=== PATIENT | female | born 1985 | race Caucasian/White ===

== ENCOUNTER 2016-04-04 09:11 | Emergency (ER) | payer MEDICAID ==
[~2016-04-04 09:11] MED LIST: PREN1CAP17; ZANT150T2 PO
[2016-04-04 10:13] VITALS: RESP 20; TEMP 98.7
--- NOTE | 2016-04-04 10:22 | PD ---
HPI Chief Complaint "I saw blood from my vagina when I wiped this morning" Date Seen: Apr 04, 2016 Time Seen: 10:10 Travel History International Travel<30 Days: No Contact w/Intl Traveler<30Days: No Known Affected Area: No History of Present Illness HPI 30-year-old 010 at 34 weeks of gestation, EDC 05/16/16, patient presents to labor and delivery complaining of vaginal spotting. Patient stated that she saw blood when she wiped this morning. She denies cramping, contractions, vaginal bleeding, leakage of fluid. She reports presence of movement. Patient stated that she just wanted to be checked out and so she came to labor and delivery. care is with the office of [facility]. course is unremarkable. Para: 0 : 2 Miscarriage: 1 : 0 History Past Medical History Narrative Medical Denies Medical History: Denies Significant Hx Obstetric History Obstetric History Spontaneous 1 Past Surgical History Narrative Surgical Status post oral surgery and wisdom tooth extraction Family History Narrative Family History Father with hypertension Social History Alcohol Use: No Tobacco Use: No Substance Abuse: No Allergies-Medications (Allergen,Severity, Reaction): Coded Allergies: No Known Allergies (Unverified , 03/26/16) Home Meds Active Scripts Ranitidine (Zantac)150 Mg [id number] Mg PO BID #60 TAB Ref 6 Prov:Blanquita Morales 01/30/16 Reported Medications W/O A W/ Fe Asparto G (Prenate Pixie 10-0.6-0.4-200 mg)1 Cap Cap 01/30/16 Review of Systems Except as stated in HPI: all other systems reviewed are Neg Genitourinary: Other (vaginal spotting) Physical Exam Narrative GENERAL: Well-nourished, well-developed patient. SKIN: Warm and dry. HEAD: Normocephalic and atraumatic. EYES: No scleral icterus. No injection or drainage. ENT: No nasal drainage noted. Mucous membranes pink. Airway patent. NECK: Supple, trachea midline. No JVD. CARDIOVASCULAR: Regular rate and rhythm without murmurs, gallops, or rubs. RESPIRATORY: Breath sounds equal bilaterally. No accessory muscle use. BREASTS: Bilateral exam showed no masses , no retractions, no nipple discharge. ABDOMEN/GI: Abdomen soft, gravid, non-tender, bowel sounds present, no rebound, no guarding Gravid to 34 weeks size Fundal Height: 34 cm GENITOURINARY: External Genitalia: intact and normal in appearance BUS glands: Normal Cervix: Closed, long, posterior, there is some dark blood noted on the glove however there is no active bleeding Dilatation: Close Effacement: 30% Station: -3 Presentation: Cephalic Membranes: Intact Uterine Contractions: None FHT's: Category: one Baseline: 130s Reactive: Yes Variability: Moderate Decels: None EXTREMITIES: No cyanosis or edema. BACK: Nontender without obvious deformity. No CVA tenderness. NEUROLOGICAL: Awake and alert. Motor and sensory grossly within normal limits. Five out of 5 muscle strength in all muscle groups. Normal speech. Data Data Vital Signs Reviewed: Yes Orders Vital Signs (Adult) .ON ADMISSION (04/04/16 10:02) ^ Labor Status (04/04/16 10:02) Urinalysis - C+S If Indicated (04/04/16 10:02) ^ Non Stress Test (04/04/16 10:02) ^ Hydration (04/04/16 10:02) Diet Regular Basic (04/04/16 Lunch) MDM Medical Record Reviewed: Yes Diagnosis Diagnosis: Primary Impression: 34 weeks gestation of Additional Impression: Spotting affecting in third trimester Disposition: 01 DISCHARGE HOME Condition: Stable Patient Instructions: Early Labor Signs (ED), General Instructions, Labor (ED) Additional Instructions: Patient instructed to return to labor and delivery if increased symptoms, cramping, contractions, leakage of fluids, vaginal bleeding or decreased movement. Drink plenty of fluids. Monitor kick counts. Keep office appointment as scheduled. Pelvic rest, nothing in the vagina. Departure Forms: Tests/Procedures Slim Mcclain MD Apr 04, 2016 10:22
[2016-04-04 10:47] LABS: BACTERIA, URINE MOD /hpf; BLOOD, URINE MOD (NEG); COMMENT (UR) CULTURE INDICATED; CULTURE IF INDICATED CULTURE INDICATED; GLUCOSE,URINE NEG (NEG); KETONE, URINE NEG (NEG); MUCUS URINE FEW /lpf (OCC); NITRITE,URINE NEG (NEG); SQUAMOUS EPITHELIAL CELL URINE 5 /hpf (0-5); URINE COLOR LIGHT-YELLOW (YELLW/STRAW)
--- NOTE | 2016-04-04 10:49 | HHI.DS ---
Discharge Date: Apr 04, 2016 Admitting Diagnosis 34 weeks of , spotting in third trimester of . Labor ruled out. Diagnosis: (1) 34 weeks gestation of Diagnosis: Principal (2) Spotting affecting in third trimester Diagnosis: Secondary Brief History 30-year-old 010 at 34 weeks of gestation, EDC 05/16/16, patient presents to labor and delivery complaining of vaginal spotting. Patient stated that she saw blood when she wiped this morning. She denies cramping, contractions, vaginal bleeding, leakage of fluid. She reports presence of movement. Patient stated that she just wanted to be checked out and so she came to labor and delivery. care is with the office of care for women. course is unremarkable. Pt Condition on Discharge: Stable Discharge Disposition: Discharge Home Discharge Instructions Diet Instructions: As Tolerated, No Restrictions Activities You Can Perform: Regular-No Restrictions, Shower Only-No Bath, Pelvic Rest Activities to Avoid: Prolonged Standing, Strenuous Activity, Bathing, Sexual Activity Slim Mcclain MD Apr 04, 2016 10:49
[2016-04-28] MEDS ORDERED: AMOX500T PO (09:12)
[2016-05-12] MEDS ORDERED: FERRTAB2 PO (09:59)
== END 2016-04-04 10:54 | disposition home or self-care (01) ==
LOC: HOBED 09:11
DX: O26.853 Spotting complicating pregnancy, third trimester (principal); R82.90 Unspecified abnormal findings in urine; Z3A.34 34 weeks gestation of pregnancy
CPT/HCPCS: 81001; 87086; 99284

== ENCOUNTER 2016-05-05 23:19 | Inpatient (IN) | payer MEDICAID ==
[~2016-05-05] VITALS: Ht 167.6 cm; Wt 63.5 kg
[~2016-05-05 23:19] MED LIST changes: +AMOX500T PO
--- NOTE | 2016-05-05 23:29 | PD ---
HPI Chief Complaint loss of fluid Date Seen: May 05, 2016 Travel History International Travel<30 Days: No Contact w/Intl Traveler<30Days: No History of Present Illness HPI Patient is a 30 year old at 38-3/7 weeks gestation who presents today for gush of fluid. She states that the gush of fluid woke her up from her sleep. She denies any regular contractions but notes feeling more uncomfortable than usual. She denies any other vaginal bleeding or discharge. Positive movement. care with Mary Archer. History Past Medical History Narrative Medical HPV Obstetric History Obstetric History s/p spontaneous x 2 Past Surgical History Surgical History: No Previous Surgery Family History Family History: Negative Social History Alcohol Use: No Tobacco Use: No Substance Abuse: No Allergies-Medications (Allergen,Severity, Reaction): Coded Allergies: No Known Allergies (Unverified , 05/05/16) Home Meds Active Scripts Ranitidine (Zantac)150 Mg [id number] Mg PO BID #60 TAB Ref 6 Prov:Blanquita Morales 01/30/16 Reported Medications W/O A W/ Fe Asparto G (Prenate Pixie 10-0.6-0.4-200 mg)1 Cap Cap 01/30/16 Discontinued Scripts Amoxicillin 500 Mg [id number] Mg PO TID #21 TAB Ref 0 Prov:Blanquita Morales 04/28/16 Review of Systems Except as stated in HPI: all other systems reviewed are Neg General / Constitutional: No: Fever, Chills Eyes: No: Blurred Vision, Visual changes HENT: No: Headaches Cardiovascular: No: Chest Pain or Discomfort Respiratory: No: Cough, Short of Breath Gastrointestinal: No: Nausea, Vomiting Genitourinary: Pelvic Pain, Discharge, No: Dysuria, Vaginal Bleeding Musculoskeletal: No: Edema Psychiatric: No: Substance Abuse Physical Exam Narrative GENERAL: Well-nourished, well-developed patient. SKIN: Warm and dry. HEAD: Normocephalic and atraumatic. EYES: No scleral icterus. No injection or drainage. ENT: No nasal drainage noted. Mucous membranes pink. Airway patent. NECK: Supple, trachea midline. No JVD. CARDIOVASCULAR: Regular rate and rhythm without murmurs, gallops, or rubs. RESPIRATORY: Breath sounds equal bilaterally. No accessory muscle use. ABDOMEN/GI: Abdomen soft, non-tender, bowel sounds present, no rebound, no guarding Gravid to 38 weeks size GENITOURINARY: External Genitalia: intact and normal in appearance BUS glands: wnl Cervix: midposition Dilatation: 2 Effacement: 30 Station: -2 Presentation: vertex Membranes: ruptured Uterine Contractions: irregular FHT's: Category: I Baseline: 125 Reactive: + Variability: moderate Decels: none EXTREMITIES: No cyanosis or edema. BACK: Nontender without obvious deformity. No CVA tenderness. NEUROLOGICAL: Awake and alert. Motor and sensory grossly within normal limits. Normal speech. Data Data Vital Signs Reviewed: Yes Orders Vital Signs (Adult) .ON ADMISSION (05/05/16 23:27) ^ Labor Status (05/05/16 23:27) ^ Non Stress Test (05/05/16 23:27) ^ Hydration (05/05/16 23:27) Pamg-1 Test .ONCE (05/05/16 23:27) MDM Medical Record Reviewed: Yes Narrative Course / MDM 30 year old at 38-4/7 weeks gestation. 1. IUP- Category I tracing, reassuring. Continue routine obstetric care. 2. SROM, amnisure positive- will admit for labor and delivery. Augment labor with Pitocin. 3. GBS positive- penicillin per protocol 4. Anticipate vaginal delivery dw Dr. Cevallos and Dr. Gallardo R1 Nita Loja MD R2 May 05, 2016 23:29
[2016-05-05 23:37] VITALS: BP 122/79; PULSE 82; RESP 18
[2016-05-05 23:39] VITALS: TEMP 98.9
[2016-05-06] VITALS (63 sets, daily range): BP systolic 100–140; BP diastolic 56–88; PULSE 72–122; RESP 18; TEMP 98–98.6
[2016-05-06] MEDS ORDERED: LACTATED RINGER'S 1000 ML INJ 1,000 ML IV PRN (00:02)
[2016-05-06] MEDS ORDERED: LIDOCAINE HCL 1% 50 ML VIAL INFIL PRN (00:15)
[2016-05-06] MEDS ORDERED: ONDANSETRON HCL 4 MG/2 ML VIAL IV PRN (00:15)
[2016-05-06] MEDS ORDERED: SODIUM CHLORID 0.9% 500 ML INJ 500 ML IV PRN (00:15)
[2016-05-06] MEDS ORDERED: MINERAL OIL 10 ML VIAL TOPICAL PRN (00:15)
[2016-05-06] MEDS ORDERED: PENICILLIN G POTASSIUM INJ 5,000,000 UNITS in SODIUM CHLORIDE 0.9% INJ 100 ML IV ONE (00:15)
[2016-05-06] MEDS ORDERED: OXYTOCIN 30 UNITS-500ML PREMIX 500 ML IV SCH (00:15)
[2016-05-06] MEDS ORDERED: OXYTOCIN 30 UNITS-500ML PREMIX 500 ML IV ONE (00:15)
[2016-05-06] MEDS ORDERED: LIDOCAINE HCL 1% 50 ML VIAL I-DERMAL PRN (00:15)
[2016-05-06] MEDS ORDERED: CITRIC ACID-SODIUM CITRATE LIQ 30 ML UDC PO SCH (00:15)
--- NOTE | 2016-05-06 00:16 | PD ---
History of Present Illness Date Seen: May 06, 2016 History of Present Illness This patient is 30-year-old white female at 38 weeks followed through [facility] presents with spontaneous rupture membranes her amnio sure is positive. She has no bleeding. She is rebecca at this time she is seen by the family medicine residents admitted her without difficulty and I agree with their assessment and plan which is to admit the patient augment her labor as needed anticipate vaginal delivery. She is GBS positive and will cover with the appropriate antibiotic IV Maciel Cevallos II, MD May 06, 2016 00:16
[2016-05-06] MEDS ORDERED: SODIUM CHLOR 0.9% 1000 ML INJ 1,000 ML IV PRN (00:22)
--- NOTE | 2016-05-06 00:39 | HHI.HP ---
History & Physical H&P HPI Chief Complaint loss of fluid Date Seen: May 05, 2016 Travel History International Travel<30 Days: No Contact w/Intl Traveler<30Days: No History of Present Illness HPI Patient is a 30 year old at 38-3/7 weeks gestation who presents today for gush of fluid. She states that the gush of fluid woke her up from her sleep. She denies any regular contractions but notes feeling more uncomfortable than usual. She denies any other vaginal bleeding or discharge. Positive movement. care with Mary Archer. History (Limited) History Past Medical History Narrative Medical HPV Obstetric History Obstetric History s/p spontaneous x 2 Past Surgical History Surgical History: No Previous Surgery Family History Family History: Negative Social History Alcohol Use: No Tobacco Use: No Substance Abuse: No Allergies-Medications Allergies-Medications (Allergen,Severity, Reaction): Coded Allergies: No Known Allergies (Unverified , 05/05/16) Home Meds Active Scripts Ranitidine (Zantac)150 Mg [id number] Mg PO BID #60 TAB Ref 6 Prov:Blanquita Morales 01/30/16 Reported Medications W/O A W/ Fe Asparto G (Prenate Pixie 10-0.6-0.4-200 mg)1 Cap Cap 01/30/16 Discontinued Scripts Amoxicillin 500 Mg [id number] Mg PO TID #21 TAB Ref 0 Prov:Blanquita MoralesP 04/28/16 ROS Review of Systems Except as stated in HPI: all other systems reviewed are Neg General / Constitutional: No: Fever, Chills Eyes: No: Blurred Vision, Visual changes HENT: No: Headaches Cardiovascular: No: Chest Pain or Discomfort Respiratory: No: Cough, Short of Breath Gastrointestinal: No: Nausea, Vomiting Genitourinary: Pelvic Pain, Discharge, No: Dysuria, Vaginal Bleeding Musculoskeletal: No: Edema Psychiatric: No: Substance Abuse Physical Exam Physical Exam Narrative GENERAL: Well-nourished, well-developed patient. SKIN: Warm and dry. HEAD: Normocephalic and atraumatic. EYES: No scleral icterus. No injection or drainage. ENT: No nasal drainage noted. Mucous membranes pink. Airway patent. NECK: Supple, trachea midline. No JVD. CARDIOVASCULAR: Regular rate and rhythm without murmurs, gallops, or rubs. RESPIRATORY: Breath sounds equal bilaterally. No accessory muscle use. ABDOMEN/GI: Abdomen soft, non-tender, bowel sounds present, no rebound, no guarding Gravid to 38 weeks size GENITOURINARY: External Genitalia: intact and normal in appearance BUS glands: wnl Cervix: midposition Dilatation: 2 Effacement: 30 Station: -2 Presentation: vertex Membranes: ruptured Uterine Contractions: irregular FHT's: Category: I Baseline: 125 Reactive: + Variability: moderate Decels: none EXTREMITIES: No cyanosis or edema. BACK: Nontender without obvious deformity. No CVA tenderness. NEUROLOGICAL: Awake and alert. Motor and sensory grossly within normal limits. Normal speech. Data Data Data Vital Signs Reviewed: Yes Orders Vital Signs (Adult) .ON ADMISSION (05/05/16 23:27) ^ Labor Status (05/05/16 23:27) ^ Non Stress Test (05/05/16 23:27) ^ Hydration (05/05/16 23:27) Pamg-1 Test .ONCE (05/05/16 23:27) MDM MDM Medical Record Reviewed: Yes Narrative Course / MDM 30 year old at 38-4/7 weeks gestation. 1. IUP- Category I tracing, reassuring. Continue routine obstetric care. 2. SROM, amnisure positive- will admit for labor and delivery. Augment labor with Pitocin. 3. GBS positive- penicillin per protocol 4. Anticipate vaginal delivery dw Dr. Cevallos and Dr. Gallardo R1 Nita Loja MD R2 May 06, 2016 00:39
[2016-05-06 01:13] LABS: AUTOMATED NEUTROPHIL # 7.3 TH/MM3 (1.8-7.7); BASOPHIL % 0.3 % (0.0-2.0); EOSINOPHIL # 0.1 TH/MM3 (0-0.4); EOSINOPHIL % 0.7 % (0.0-4.0); HEMATOCRIT 30.7 % (35.0-46.0); HEMO FLAGS DIFF FINAL; LYMPH % 20.7 % (9.0-44.0); LYMPHOCYTE # 2.2 TH/MM3 (1.0-4.8); MEAN CELL VOLUME 86.3 FL (80.0-100.0); MEAN CORPUSCULAR HEMOGLOBIN 29.6 PG (27.0-34.0); MEAN CORPUSCULAR HGB CONC 34.3 % (32.0-36.0); MONO % 10.8 % (0.0-8.0); NEUT % 67.5 % (16.0-70.0); PLATELET COUNT 275 TH/MM3 (150-450); RED BLOOD COUNT 3.56 MIL/MM3 (4.00-5.30); RED CELL DISTRIBUTION WIDTH 13.6 % (11.6-17.2); WHITE BLOOD COUNT 10.8 TH/MM3 (4.0-11.0)
[2016-05-06 01:14] LABS: BLOOD, URINE NEG (NEG); GLUCOSE,URINE NEG (NEG); KETONE, URINE NEG (NEG); NITRITE,URINE NEG (NEG); PH, URINE 6.5 (5.0-8.5); SQUAMOUS EPITHELIAL CELL URINE <1 /hpf (0-5); URINE COLOR LIGHT-YELLOW (YELLW/STRAW)
[2016-05-06 01:17] LABS: COMMENT (UR) CULT NOT INDICATED; CULTURE IF INDICATED CULT NOT INDICATED
[2016-05-06] MEDS: LACTATED RINGER'S 1000 ML INJ 1,000 ML IV SCH ×4 (02:24→12:23)
--- NOTE | 2016-05-06 04:35 | PD.LABORPN ---
Subjective Subjective Patient ambulating around floor, feeling irregular painful contractions. Objective Vital Signs Vital Signs Date Time Temp Pulse Resp B/P Pulse Ox O2 Delivery O2 Flow Rate FiO2 05/06/16 03:51 18 05/06/16 03:51 80 100/61 05/06/16 03:00 98.6 74 18 100/61 05/06/16 02:15 88 124/86 05/06/16 00:53 18 05/06/16 00:52 98.4 05/06/16 00:51 116/71 05/06/16 00:51 79 05/05/16 23:39 98.9 05/05/16 23:37 18 05/05/16 23:37 82 122/79 Objective Pelvic Exam: Cervix: midposition Dilatation: 2 Effacement: 30 Station: -2 Presentation: vertex Membranes: ruptured Uterine Contractions: irregular FHT's: Category: I Baseline: 125 Reactive: + Variability: moderate Decels: none Assessment/Plan Assessment and Plan 30 year old at 38-4/7 weeks gestation. 1. IUP- Category I tracing, reassuring. Continue routine obstetric care. 2. SROM, amnisure positive- Patient initially refusing labor augmentation with Pitocin. No cervical change after 5 hours despite ambulation. Counseling and education provided regarding risk of infection with prolonged ROM. Patient expressed understanding and agrees to Pitocin augmentation at this time. Will also attempt birthing ball. 3. GBS positive- penicillin per protocol 4. Anticipate vaginal delivery dw Dr. Cevallos and Dr. Gallardo R1 Nita Loja MD R2 May 06, 2016 04:35
[2016-05-06] MEDS: PENICILLIN G POTASSIUM INJ 2,500,000 UNITS in SODIUM CHLORIDE 0.9% INJ 100 ML IV SCH ×3 (04:41→12:23)
[2016-05-06] MEDS ORDERED: fentaNYL 2MCG-BUPIV 0.125% INJ 100 ML ONE (11:37)
[2016-05-06] MEDS ORDERED: ePHEDrine/NS 25 MG/5 ML SYR ONE (11:50)
[2016-05-06] MEDS ORDERED: NO SYSTEM NARCOTICS XX PRN (13:00)
[2016-05-06] MEDS ORDERED: ePHEDrine/NS 50 MG/5 ML SYR IV PRN (13:00)
[2016-05-06] MEDS ORDERED: DO NOT ADMINISTER ANTICOAGULANTS XX PRN (13:00)
[2016-05-06] MEDS ORDERED: fentaNYL 2MCG-BUPIV 0.125% 100 ML EPIDURAL SCH (13:00)
--- NOTE | 2016-05-06 13:12 | PD.LABORPN ---
Subjective Subjective comfortable now with REYNOLD. Objective Vital Signs Vital Signs Date Time Temp Pulse Resp B/P Pulse Ox O2 Delivery O2 Flow Rate FiO2 05/06/16 12:45 112/69 05/06/16 12:45 96 05/06/16 12:35 112/66 05/06/16 12:35 98 05/06/16 12:30 90 121/61 05/06/16 12:25 89 109/68 05/06/16 12:24 18 05/06/16 12:21 98 117/72 05/06/16 12:20 93 05/06/16 12:15 100 05/06/16 12:15 140/66 05/06/16 12:10 102 05/06/16 12:10 122/73 05/06/16 12:07 92 129/67 05/06/16 12:05 95 05/06/16 12:04 94 135/74 05/06/16 12:00 94 05/06/16 11:55 104 05/06/16 11:51 94 133/80 05/06/16 11:51 94 133/80 05/06/16 11:50 101 05/06/16 10:54 98.2 05/06/16 10:52 18 05/06/16 10:51 80 137/83 05/06/16 10:17 18 05/06/16 10:02 76 106/70 05/06/16 10:00 18 05/06/16 09:14 98.0 18 05/06/16 09:13 85 120/75 05/06/16 08:17 85 112/71 05/06/16 08:17 18 05/06/16 08:00 87 111/75 05/06/16 07:21 98.0 18 05/06/16 07:15 86 105/68 05/06/16 06:30 78 107/62 05/06/16 06:15 75 101/56 05/06/16 06:00 98.5 18 05/06/16 05:45 88 102/88 05/06/16 05:30 72 107/67 05/06/16 05:15 83 109/70 Objective Pelvic Exam: 8/100/0 FHT's: Category: I Baseline: 125 Reactive: +accelerations Variability: mod Decels: occasional early/variable Assessment/Plan Assessment and Plan 38 weeks PROM, on Pitocin now REYNOLD, comfortable now Expect vaginal delivery No questions at this time. Vidya Aldridge MD May 06, 2016 13:12
[2016-05-06] MEDS ORDERED: DIPHTH/TETANUS/ACEL PERTUSSIS (BOOSTER) 0.5 ML VIAL/PFS IM ONE (16:00)
[2016-05-06] MEDS ORDERED: MEASLES, MUMPS, RUBELLA VACCINE 0.5 ML VIAL SQ ONE (16:00)
--- NOTE | 2016-05-06 16:34 | PD.OB.DELI ---
Delivery Date: May 06, 2016 Anesthesia: Epidural Episiotomy: None Vaginal Delivery: Spontaneous Presentation: Occiput anterior Nuchal Cord: None Delayed cord clamping (45 sec): Yes : Female One Minute : 8 Five Minute : 8 Weight: 2985g Infant Care: Suctioned, Spontaneous crying, Responded to stimulation Placenta: Spontaneous delivery, Intact, 3 vessel cord Laceration: Vaginal laceration, 2 deg Repair: Vicryl running Additional Information Delivery of girl by Dr. Aldridge, assisted by Dr. Mtz. born 16:06 ; Placenta delivered 16:15. EBL 200mL. (Mariaelena Mtz MD R1) Additional Information 30 yo @ 38 weeks presented with PROM with clear fluid. GBS positive and received prophylaxis. Pitocin augmented. Epidural for anesthesia. Uncomplicated . Placenta spontaneous and intact, grossly normal. Midline second degree laceration repaired. Vaginal sweep clear. EBL 200ml. (Vidya Aldridge MD) Mariaelena Mtz MD R1 May 06, 2016 16:33 Vidya Aldridge MD May 06, 2016 17:17
[2016-05-06] MEDS ORDERED: ACETAMINOPHEN 325 MG TAB PO PRN (16:45)
[2016-05-06] MEDS ORDERED: ALUMINUM/MAGNESIUM/SIMETH 30 ML CUP PO PRN (16:45)
[2016-05-06] MEDS ORDERED: BENZOCAINE 20% TOPICAL SPRAY 60 ML CAN TOPICAL PRN (16:45)
[2016-05-06] MEDS ORDERED: ZOLPIDEM TARTRATE 5 MG TAB PO PRN (16:45)
[2016-05-06] MEDS ORDERED: WITCH HAZEL 50%/GLYCERIN 12.5% 40 PAD JAR TOPICAL PRN (16:45)
[2016-05-06] MEDS ORDERED: oxyCODONE/ACETAMINOPHEN 5 MG/325 MG TAB PO PRN ×2 (16:45)
[2016-05-06] MEDS ORDERED: CALCIUM CARBONATE 500 MG CHEWABLE TAB CHEW PRN (16:45)
[2016-05-06] MEDS ORDERED: SODIUM CHLORIDE 0.9% FLUSH 5 ML FLUSH IV PRN (16:45)
[2016-05-06] MEDS ORDERED: ONDANSETRON ODT 4 MG TAB PO PRN (16:45)
[2016-05-06] MEDS ORDERED: DOCUSATE SODIUM 50 MG/SENNA 8.6 MG TAB PO PRN (16:45)
[2016-05-06] MEDS ORDERED: PETROLEUM/SHARK LIVER OIL 60 GM TUBE RECTAL PRN (16:45)
[2016-05-06] MEDS ORDERED: SODIUM CHLORIDE 0.9% FLUSH 5 ML FLUSH IV SCH (21:00)
--- NOTE | 2016-05-07 08:12 | HHI.OB ---
Subjective Post Day: 1 Remarks Patient is doing well this morning. Pain is controlled with medications. She is ambulating and voiding without difficulty. Vaginal bleeding is less than yesterday. She has both breast and bottle feeding. No chest pain, nausea, vomiting, shortness of breath. No fever, chills. (Ady Syed MD R2) Remarks doing well. Breast and bottle feeding. (Vidya Aldridge MD) Objective Vitals/I&O Vital Signs Date Time Temp Pulse Resp B/P Pulse Ox O2 Delivery O2 Flow Rate FiO2 05/06/16 17:45 18 05/06/16 17:45 85 103/58 05/06/16 17:30 18 05/06/16 17:30 92 104/58 05/06/16 17:15 94 110/68 05/06/16 17:11 18 05/06/16 17:00 77 125/83 05/06/16 16:51 98.6 18 05/06/16 16:45 93 108/65 05/06/16 16:34 18 05/06/16 16:30 107 118/65 05/06/16 16:01 108 122/69 05/06/16 15:30 101 111/69 05/06/16 15:00 108 102/63 05/06/16 14:30 96 121/71 05/06/16 13:30 122 112/76 05/06/16 13:21 98.2 05/06/16 13:15 83 05/06/16 13:10 84 05/06/16 13:05 79 05/06/16 13:00 78 110/63 05/06/16 12:45 112/69 05/06/16 12:45 96 05/06/16 12:35 112/66 05/06/16 12:35 98 05/06/16 12:30 90 121/61 05/06/16 12:25 89 109/68 05/06/16 12:24 18 05/06/16 12:21 98 117/72 05/06/16 12:20 93 05/06/16 12:15 100 05/06/16 12:15 140/66 05/06/16 12:10 102 05/06/16 12:10 122/73 05/06/16 12:07 92 129/67 05/06/16 12:05 95 05/06/16 12:04 94 135/74 05/06/16 12:00 94 05/06/16 11:55 104 05/06/16 11:51 94 133/80 05/06/16 11:51 94 133/80 05/06/16 11:50 101 05/06/16 10:54 98.2 05/06/16 10:52 18 05/06/16 10:51 80 137/83 05/06/16 10:17 18 05/06/16 10:02 76 106/70 05/06/16 10:00 18 05/06/16 09:14 98.0 18 05/06/16 09:13 85 120/75 05/06/16 08:17 85 112/71 05/06/16 08:17 18 Objective Remarks GENERAL: Well-nourished, well-developed patient. CARDIOVASCULAR: Regular rate and rhythm without murmurs, gallops, or rubs. RESPIRATORY: Breath sounds equal bilaterally. No accessory muscle use. ABDOMEN/GI: Abdomen soft, non-tender. Fundus: Firm, non-tender at umbilicus. GENITOURINARY: Light to moderate bleeding. EXTREMITIES: No cyanosis or edema, non-tender, without signs of DVT. Medications and IVs Current Medications Medications (Trade) Dose Ordered Sig/Flynn Route Start Time Stop Time Status Last Admin (NS Flush) 2 ml BID IV 05/06/16 21:00 (NS Flush) 2 ml UNSCH PRN IV 05/06/16 16:45 (Tylenol) 650 mg Q4H PRN PO 05/06/16 16:45 (Motrin) 600 mg Q6H PRN PO 05/06/16 16:45 (Percocet 5-325 Mg) 1 tab Q4H PRN PO 05/06/16 16:45 (Percocet 5-325 Mg) 2 tab Q4H PRN PO 05/06/16 16:45 (Americaine 20% Top Spr) 1 spray Q4H PRN TOPICAL 05/06/16 16:45 05/06/16 19:40 (Tucks Pads) 1 applic QID PRN TOPICAL 05/06/16 16:45 05/06/16 19:40 (Halima-Colace) 2 tab BID PRN PO 05/06/16 16:45 (Ambien) 5 mg HS PRN PO 05/06/16 16:45 (Mag-Al Plus Susp Liq) 15 ml Q8H PRN PO 05/06/16 16:45 (Zofran Odt) 4 mg Q6H PRN PO 05/06/16 16:45 (Tums Chew) 500 mg Q6HR PRN CHEW 05/06/16 16:45 (Miralax) 17 gm DAILY PO 05/07/16 09:00 (Preparation H Oint) 1 applic Q4HR PRN RECTAL 05/06/16 16:45 (Ady Syed MD R2) Assessment/Plan Problem List: (1) Vaginal delivery Assessment and Plan 30 year old PPD1 1. Care - AFVSS since delivery - Motrin and Percocet prn pain - Encouraged OOB, as tolerated - Pelvic rest x 6 weeks - Will f/u with OB provider in 4- 6 weeks - Anticipate d/c tomorrow We'll discuss with OB hospitalist Discharge Planning Likely tomorrow (Ady Syed MD R2) Attending Attestation PPD#1 s/p Doing well. continue PP care and observation Anticipate d/c home in AM Patient seen and examined. D/w Dr. Syed and Dr. Mtz (Vidya Aldridge MD) Ady Syed MD R2 May 07, 2016 08:11 Vidya Aldridge MD May 07, 2016 08:34
[2016-05-07] MEDS ORDERED: POLYETHYLENE GLYCOL 17 GM PKG PO SCH (09:00)
[2016-05-07] MEDS: IBUPROFEN 600 MG TAB PO PRN ×3 (09:37→22:08)
[2016-05-08] MEDS: IBUPROFEN 600 MG TAB PO PRN (05:06)
[2016-05-08] MEDS ORDERED: IBUP-232 PO (07:24)
[2016-05-08] MEDS ORDERED: SENN1TAB PO (07:24)
--- NOTE | 2016-05-08 07:25 | HHI.DCPOC ---
Discharge Care Plan Diagnosis: (1) Vaginal delivery Report Symptoms to Your Doctor -Temperate above 100.5 degrees -Redness, of incision or excessive or foul smelling drainage -Unusual pain or calf pain -Increased vaginal bleeding -Painful or difficulty urinating -Feelings of extreme sadness or anxiety after 2 weeks Goals to Promote Your Health * To prevent worsening of your condition and complications * To maintain your health at the optimal level Directions to Meet Your Goals Take your medications as prescribed Follow your dietary instruction Follow activity as directed Ensure plenty of rest for recovery Drink fluids for hydration Keep your appointments as scheduled Take your immunizations and boosters as scheduled If your symptoms worsen call your PCP, if no PCP go to Urgent Care Center or Emergency Room Smoking is Dangerous to Your Health. Avoid second hand smoke Call the 24-hour crisis hotline for domestic abuse at Ady Syed MD R2 May 08, 2016 07:25
--- NOTE | 2016-05-08 08:51 | HHI.OB ---
Subjective Post Day: 2 Remarks Patient is doing well this morning. She is ambulating and voiding without difficulty. Breast-feeding. Vaginal bleeding has improved. No chest pain, nausea, vomiting, shortness of breath, fever, chills. Objective Objective Remarks GENERAL: Well-nourished, well-developed patient. CARDIOVASCULAR: Regular rate and rhythm without murmurs, gallops, or rubs. RESPIRATORY: Breath sounds equal bilaterally. No accessory muscle use. ABDOMEN/GI: Abdomen soft, non-tender. Fundus: Firm, non-tender at umbilicus. GENITOURINARY: Light to moderate bleeding. EXTREMITIES: No cyanosis or edema, non-tender, without signs of DVT. Medications and IVs Current Medications Medications (Trade) Dose Ordered Sig/Flynn Route Start Time Stop Time Status Last Admin (NS Flush) 2 ml BID IV 05/06/16 21:00 (NS Flush) 2 ml UNSCH PRN IV 05/06/16 16:45 (Tylenol) 650 mg Q4H PRN PO 05/06/16 16:45 (Motrin) 600 mg Q6H PRN PO 05/06/16 16:45 05/08/16 05:06 (Percocet 5-325 Mg) 1 tab Q4H PRN PO 05/06/16 16:45 (Percocet 5-325 Mg) 2 tab Q4H PRN PO 05/06/16 16:45 (Americaine 20% Top Spr) 1 spray Q4H PRN TOPICAL 05/06/16 16:45 05/06/16 19:40 (Tucks Pads) 1 applic QID PRN TOPICAL 05/06/16 16:45 05/06/16 19:40 (Halima-Colace) 2 tab BID PRN PO 05/06/16 16:45 05/07/16 22:07 (Ambien) 5 mg HS PRN PO 05/06/16 16:45 (Mag-Al Plus Susp Liq) 15 ml Q8H PRN PO 05/06/16 16:45 (Zofran Odt) 4 mg Q6H PRN PO 05/06/16 16:45 (Tums Chew) 500 mg Q6HR PRN CHEW 05/06/16 16:45 (Miralax) 17 gm DAILY PO 05/07/16 09:00 (Preparation H Oint) 1 applic Q4HR PRN RECTAL 05/06/16 16:45 Assessment/Plan Problem List: (1) Vaginal delivery Assessment and Plan 30 year old PPD2 1. Care - AFVSS since delivery - Motrin and Percocet prn pain - Encouraged OOB, as tolerated - Pelvic rest x 6 weeks - Will f/u with OB provider in 4- 6 weeks - Anticipate d/c today We'll discuss with OB hospitalist Discharge Planning Today Ady Syed MD R2 May 08, 2016 08:51
[2016-05-12] MEDS ORDERED: FERRTAB2 PO (09:59)
== END 2016-05-08 12:36 | disposition home or self-care (01) | DRG 775 ==
LOC: HOBED 23:19 → H2EB 23:56 → H1EA 05-06 18:31
PROVIDERS: ADMIT Obstetrics & Gynecology Maternal & Fetal Medicine; ATTEND Obstetrics & Gynecology Maternal & Fetal Medicine
PROC: 0KQM0ZZ Repair Perineum Muscle, Open Approach (ICD-10-PCS; principal; 2016-05-06)
PROC: 10E0XZZ Delivery of Products of Conception, External Approach (ICD-10-PCS; 2016-05-06)
PROC: 00HU33Z Insertion of Infusion Device into Spinal Canal, Percutaneous Approach (ICD-10-PCS; 2016-05-06)
PROC: 3E0R3CZ (ICD-10-PCS; 2016-05-06)
DX: O42.92 Full-term premature rupture of membranes, unspecified as to length of time between rupture and onset of labor (principal); O99.824 Streptococcus B carrier state complicating childbirth; O70.1 Second degree perineal laceration during delivery; Z37.0 Single live birth; Z3A.38 38 weeks gestation of pregnancy
CPT/HCPCS: 81001; 84112; 85025; 86900; 86901; 90715; 99285; J2405; J2540; J2590; J3010; J7120

== ENCOUNTER 2017-01-24 15:36 | Emergency (ER) | payer SELFPAY ==
[~2017-01-24] VITALS: Ht 167.6 cm; Wt 50.0 kg
[~2017-01-24 15:36] MED LIST changes: -AMOX500T PO; +FERRTAB2 PO; -PREN1CAP17; -ZANT150T2 PO
[2017-01-24 15:42] VITALS: BP 120/79; PULSE 93; RESP 18
[2017-01-24 15:43] VITALS: TEMP 98.4; O2SAT 100
[2017-01-24] MEDS ORDERED: BACT800T5 PO (18:54)
--- NOTE | 2017-01-24 18:54 | PD ---
HPI Chief Complaint: Skin Problem Time Seen by Provider: 18:12 Travel History International Travel<30 days: No Contact w/Intl Traveler<30days: No Traveled to known affect area: No History of Present Illness HPI 31-year-old female presents to emergency department complaining of a lesion in her left axilla for 4 days. States that she has had increased pain over the last day which is why she is here today. State the pain is moderate with palpation and movement of her arm. Denies numbness/tingling, fever, chills, chest pain, shortness of breath. She has not tried any OTC medications or treatment for this. She denies medical issues or chronic medication use. Denies illicit or IV drug use. This is the first occurrence. PFSH Past Medical History ?: Not LMP: 12/24/16 Social History Alcohol Use: Yes ([facility]) Tobacco Use: No [facility] Allergies-Medications (Allergen,Severity, Reaction): Coded Allergies: No Known Allergies (Unverified Adverse Reaction, Unknown, 01/24/17) Reported Meds & Prescriptions Reported Meds & Active Scripts Active Bactrim DS (Sulfamethoxazole-Trimethoprim) 800-160 Mg Tab 1 Tab PO BID Ferralet (Multi-Vit/Iron-Folic Dmac-E02-Oqi C) 90-1-0.012-120 mg Tab 1 Tab PO DAILY Review of Systems Except as stated in HPI: all other systems reviewed are Neg Physical Exam Narrative GENERAL: Well developed, well nourished SKIN: Focused skin assessment warm/dry.SKIN: There is an indurated area in the right axilla which measures about 1.5cm cm in diameter. It is fluctuant but there is no pointing or drainage. There is a zone of inflammation around it but no lymphangitis. No lymphadenopathy to axillary nodes. HEAD: Atraumatic. Normocephalic. EYES: Pupils equal and round. No scleral icterus. No injection or drainage. ENT: No nasal bleeding or discharge. Mucous membranes pink and moist. NECK: Trachea midline. No JVD. No lymphadenopathy CARDIOVASCULAR: Regular rate and rhythm. No murmur appreciated. RESPIRATORY: No accessory muscle use. Clear to auscultation. Breath sounds equal bilaterally. GASTROINTESTINAL: Abdomen soft, non-tender, nondistended. Hepatic and splenic margins not palpable. MUSCULOSKELETAL: No obvious deformities. No clubbing. No cyanosis. No edema. NEUROLOGICAL: Awake and alert. No obvious cranial nerve deficits. Motor grossly within normal limits. Normal speech. PSYCHIATRIC: Appropriate mood and affect; insight and judgment normal. Data Data Last Documented VS Vital Signs Date Time Temp Pulse Resp B/P (MAP) Pulse Ox O2 Delivery O2 Flow Rate FiO2 01/24/17 19:01 01/24/17 17:30 16 01/24/17 15:43 98.4 100 01/24/17 15:42 93 Orders Orders Ed Discharge Order (01/24/17 18:56) [facility] Medical Decision Making Medical Screen Exam Complete: Yes Emergency Medical Condition: Yes Differential Diagnosis Right axillary abscess versus cellulitis versus lymphadenopathy versus hydradenitis suppurativa Narrative Course 31-year-old female presents to emergency department complaining of a lesion in her left axilla for 4 days. States that she has had increased pain over the last day which is why she is here today. State the pain is moderate with palpation and movement of her arm. Denies numbness/tingling, fever, chills, chest pain, shortness of breath. She has not tried any OTC medications or treatment for this. She denies medical issues or chronic medication use. Denies illicit or IV drug use. This is the first occurrence. Physical exam consistent with abscess. Axillary lymph nodes palpable and deep to lesion. ID& performed, irrigated. bloody exudate easily expressed. No culture obtained due to simple abscess, first occurrence, no risk factors. Abx outpatient. Pt advised to keep clean and dry, return to ED for worsening symptoms. F/u with PCP within 2 days. Procedures Procedure Narrative Using clean technique, right axilla abscess prepped with iodine/betadine. Most superficial portion anesthetized with 2cc lidocaine 1% to create a wheal. Most fluctuant portion incised with #11blade. Bloody exudate expressed. Irrigated with sterile saline. iodoform packed to create a wick. Site dressed. Pt tolerated well. Diagnosis Primary Impression: Abscess Referrals: Primary Care Physician Additional Instructions: Take medications as prescribed. Change dressings and approximately 24 hours. Keep area clean and dry. Return if signs symptoms persist or worsen Scripts Sulfamethoxazole-Trimethoprim (Bactrim DS) 800-160 Mg Tab 1 TAB PO BID for Infection, #20 TAB 0 Refills Prov: Pete Santos MD 01/24/17 Disposition: 01 DISCHARGE HOME Condition: Stable Piper Cortez Jan 24, 2017 18:53
== END 2017-01-24 19:05 | disposition home or self-care (01) ==
LOC: NEPD 15:36
DX: L02.411 Cutaneous abscess of right axilla (principal)
CPT/HCPCS: 10061